=== PATIENT | male | born 1960 | race Caucasian/White ===

== ENCOUNTER 2016-05-22 02:24 | Emergency (ER) | payer BC ==
[2016-05-22] MEDS ORDERED: ACETAMINOPHEN 325 MG TABLET PO ONE (02:44)
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
[2016-05-22] MEDS ORDERED: IBUPROFEN 600 MG TABLET PO ONE (04:31)
[2016-05-22 04:37] VITALS: BP 136/92
== END 2016-05-22 04:37 | disposition home or self-care (01) ==
LOC: ER 02:24
DX: S22.41XA Multiple fractures of ribs, right side, initial encounter for closed fracture (principal); S80.212A Abrasion, left knee, initial encounter; S80.211A Abrasion, right knee, initial encounter; M25.511 Pain in right shoulder; V19.9XXA Pedal cyclist (driver) (passenger) injured in unspecified traffic accident, initial encounter; R59.0 Localized enlarged lymph nodes
CPT/HCPCS: 71250; 99284

== ENCOUNTER → 2016-09-22 | Outpatient (CLI) | payer BC ==
--- NOTE | 2016-09-22 16:12 | RADIOLOGY REPORT (SQ) ---
EXAM DESCRIPTION: CT CHEST WITH COMPLETED DATE/TIME: 09/22/2016 3:31 pm REASON FOR STUDY: SOLITARY PULMONARY NODULE R91.1 SOLITARY PULMONARY NODULE COMPARISON: 05/22/2016 TECHNIQUE: CT scan of the chest performed using helical scanning technique with dynamic intravenous contrast injection. Images reviewed with lung, soft tissue and bone windows. Reconstructed coronal and sagittal MPR images reviewed. All images stored on PACS. All CT scanners at this facility use dose modulation, iterative reconstruction, and/or weight based d osing when appropriate to reduce radiation dose to as low as reasonably achievable (ALARA). [facility]: Dose Right [facility]: CareDose [facility]: Dose Right [facility]: Teradose 4D [facility]: [employer] CONTRAST TYPE AND DOSE: contrast/concentration: Isovue 370.00 mg/ml; Total Contrast Delivered: 80.0 ml; Total Saline Delivered: 55.0 ml RENAL FUNCTION: Creatinine 0.8 RADIATION DOSE: Up-to-date CT equipment and radiation dose reduction techniques were employed. CTDIv ol: 17.6 mGy. DLP: 677 mGy-cm. . LIMITATIONS: None. FINDINGS: LUNGS AND PLEURA: No opacities, nodules, masses. No pneumothorax. No effusions. HILAR AND MEDIASTINAL STRUCTURES: There is a stable precarinal lymph node just to the right of the mi dline. HEART AND VASCULAR STRUCTURES: No aneurysm or dissection. No central pulmonary emboli. No pericardi al effusion. HARDWARE: None in the chest. UPPER ABDOMEN: The liver is hypodense. THYROID AND OTHER SOFT TISSUES: No masses. No adenopathy. BONES: There are healing fractures of the right posterior 3rd and 8th ribs. OTHER: No other significant finding. IMPRESSION: Stable precarinal node with no acute abnormality in the chest. TECHNICAL DOCUMENTATION: JOB ID: [id number] Quality ID # [id number]: Final reports with documentation of one or more dose reduction techniques (e.g., Au tomated exposure control, adjustment of the mA and/or kV according to patient size, use of iterative reconstruction technique) 2010 [employer]- All Rights Reserved
== END ==
LOC: RAD 14:42
PROVIDERS: ATTEND Surgery
DX: R91.1 Solitary pulmonary nodule (principal)
CPT/HCPCS: 71260; 82565

== ENCOUNTER → 2017-04-05 | Outpatient (CLI) | payer BC ==
--- NOTE | 2017-04-05 14:08 | RADIOLOGY REPORT (SQ) ---
EXAM DESCRIPTION: CT CHEST WITH COMPLETED DATE/TIME: 04/05/2017 1:50 pm REASON FOR STUDY: OTHER NONSPECIFIC ABN FINDING OF LUNG FIELD (R91.8) R91.8 OTHER NONSPECIFIC ABNOR MAL FINDING OF LUNG FIELD COMPARISON: 11/22/2016. 05/22/2016. TECHNIQUE: CT scan of the chest performed using helical scanning technique with dynamic intravenous contrast injection. Images reviewed with lung, soft tissue and bone windows. Reconstructed coronal and sagittal MPR images reviewed. All images stored on PACS. All CT scanners at this facility use dose modulation, iterative reconstruction, and/or weight based d osing when appropriate to reduce radiation dose to as low as reasonably achievable (ALARA). [facility]: Dose Right [facility]: CareDose [facility]: Dose Right [facility]: Teradose 4D [facility]: [employer] CONTRAST TYPE AND DOSE: contrast/concentration: Isovue 370.00 mg/ml; Total Contrast Delivered: 80.0 ml; Total Saline Delivered: 55.0 ml RENAL FUNCTION: Creatinine 1.0 RADIATION DOSE: CT Rad equipment meets quality standard of care and radiation dose reduction techniq ues were employed. CTDIvol: 17.6 mGy. DLP: 745 mGy-cm. . LIMITATIONS: None. FINDINGS: LUNGS AND PLEURA: Multiple nodules clustered in the right upper lobe largest measuring up to just at 9 mm maximally. New since prior. Lungs otherwise clear. HILAR AND MEDIASTINAL STRUCTURES: Stable small nodes in the mediastinum. Subcentimeter appearance. Previously noted precarinal node looks low density and may actually represent pericardial fluid. Non progressive. HEART AND VASCULAR STRUCTURES: No aneurysm or dissection. No central pulmonary emboli. No pericardi al effusion. HARDWARE: None in the chest. UPPER ABDOMEN: No significant findings. Limited exam. THYROID AND OTHER SOFT TISSUES: No masses. No adenopathy. BONES: No significant finding. OTHER: No other significant finding. IMPRESSION: 1. Right upper lobe nodular infiltrate, presumably related to atypical infectious/ infl ammatory etiology. New since October of last year. TECHNICAL DOCUMENTATION: JOB ID: [id number] Quality ID # [id number]: Final reports with documentation of one or more dose reduction techniques (e.g., Au tomated exposure control, adjustment of the mA and/or kV according to patient size, use of iterative reconstruction technique) 2010 [employer]- All Rights Reserved
== END ==
LOC: RAD 13:15
PROVIDERS: ATTEND Surgery
DX: R91.8 Other nonspecific abnormal finding of lung field (principal)
CPT/HCPCS: 71260; 82565

== ENCOUNTER → 2017-07-11 | Outpatient (CLI) | payer BC ==
--- NOTE | 2017-07-11 15:33 | RADIOLOGY REPORT (SQ) ---
EXAM DESCRIPTION: CT CHEST WITH COMPLETED DATE/TIME: 07/11/2017 2:34 pm REASON FOR STUDY: MEDIASTINAL LYMPHADENOPATHY R59.0 LOCALIZED ENLARGED LYMPH NODES COMPARISON: CT chest 05/22/2016, 09/22/2016, 04/05/2017 TECHNIQUE: CT scan of the chest performed using helical scanning technique with dynamic intravenous contrast injection. Images reviewed with lung, soft tissue and bone windows. Reconstructed coronal and sagittal MPR images reviewed. All images stored on PACS. All CT scanners at this facility use dose modulation, iterative reconstruction, and/or weight based d osing when appropriate to reduce radiation dose to as low as reasonably achievable (ALARA). [facility]: Dose Right [facility]: CareDose [facility]: Dose Right [facility]: Teradose 4D [facility]: [employer] CONTRAST TYPE AND DOSE: contrast/concentration: Isovue 370.00 mg/ml; Total Contrast Delivered: 80.0 ml; Total Saline Delivered: 55.0 ml RENAL FUNCTION: Creatinine 0.8 RADIATION DOSE: CT Rad equipment meets quality standard of care and radiation dose reduction techniq ues were employed. CTDIvol: 17.0 mGy. DLP: 705 mGy-cm. . LIMITATIONS: None. FINDINGS: LUNGS AND PLEURA: No opacities, nodules, masses. No pneumothorax. No effusions. HILAR AND MEDIASTINAL STRUCTURES: No identified masses or abnormal nodes. A benign fluid-filled supe rior pericardial recess is present, projecting into the precarinal region. This is similar compared to the previous CT chest exams and does not represent an enlarged lymph node. HEART AND VASCULAR STRUCTURES: No aneurysm or dissection. No central pulmonary emboli. No pericardi al effusion. Minimal coronary artery calcifications. HARDWARE: None in the chest. UPPER ABDOMEN: No significant findings. Limited exam. THYROID AND OTHER SOFT TISSUES: No masses. No adenopathy. BONES: No significant finding. OTHER: No other significant finding. IMPRESSION: NORMAL CT OF THE CHEST WITH IV CONTRAST. TECHNICAL DOCUMENTATION: JOB ID: [id number] Quality ID # 436: Final reports with documentation of one or more dose reduction techniques (e.g., Au tomated exposure control, adjustment of the mA and/or kV according to patient size, use of iterative reconstruction technique) 2010 [employer]- All Rights Reserved Reading location - IP/workstation name: [email or web address]
== END ==
LOC: RAD 13:58
PROVIDERS: ATTEND Surgery
DX: R59.0 Localized enlarged lymph nodes (principal)
CPT/HCPCS: 71260; 82565

== ENCOUNTER 2019-01-02 23:55 | Emergency (ER) | payer BC ==
--- NOTE | 2019-01-03 00:48 | ER Document Report ---
ED Medical Screen (RME) - General Stated Complaint: HEAD INJURY Time Seen by Provider: 01/03/19 00:45 Primary Care Provider: TAISHA DRUMMOND MD [Primary Care Provider] - Follow up as needed Mode of Arrival: Ambulatory Information source: Patient Notes: 58-year-old male presented to ED for laceration above the right eye. He states he slipped while on a ladder hit his head on something on the ladder about 1145 cutting his forehead. 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 He states he is he is in no pain at this time I looked in the records and his last tetanus was in September 2014. Patient is alert oriented respirations regular and unlabored. I have greeted and performed a rapid initial assessment of this patient. A comprehensive ED assessment and evaluation of the patient, analysis of test results and completion of medical decision making process will be conducted by an additional ED providers. TRAVEL OUTSIDE OF THE [place] IN LAST 30 DAYS: No - Related Data Allergies/Adverse Reactions: No Known Allergies Allergy (Unverified 10/18/14 15:25) Past Medical History - Social History Cigarette use (# per day): No Frequency of alcohol use: Rare Drug Abuse: None Renal/ Medical History: Denies: Hx Peritoneal Dialysis - Immunizations Hx Diphtheria, Pertussis, Tetanus Vaccination: Yes - September 2014 Physical Exam - Vital signs Vitals: Temp Pulse Resp BP Pulse Ox 97.6 F 80 12 139/81 H 95 01/03/19 00:31 01/03/19 00:31 01/03/19 00:31 01/03/19 00:31 01/03/19 00:31 Course - Vital Signs Vital signs: Temp Pulse Resp BP Pulse Ox 97.6 F 80 12 139/81 H 95 01/03/19 00:31 01/03/19 00:31 01/03/19 00:31 01/03/19 00:01/03/19 00:31 Doctor's Discharge - Discharge Referrals: TAISHA DRUMMOND MD [Primary Care Provider] - Follow up as needed
[2019-01-03] MEDS ORDERED: CEPHALEXIN 500 MG CAPSULE PO ONE (04:28)
[2019-01-03] MEDS ORDERED: LIDOCAINE 1% INJ-PF (10 MG/ML) 30 ML SDV INJ ONE (04:28)
--- NOTE | 2019-01-03 04:30 | ER Document Report ---
ED Wound - General Chief Complaint: Head Injury Stated Complaint: HEAD INJURY Time Seen by Provider: 01/03/19 00:45 Mode of Arrival: Ambulatory Notes: Patient is a 58-year-old male that comes to the emergency department for chief complaint of head injury with laceration to the forehead just above the right side of the face. He states that he was on a ladder and he thinks he struck his face on the paint tool handle that was sticking off of a tray. He denies loss of consciousness, nausea, vomiting, alcohol, or any other injuries. Tetanus up-to-date within 5 years. Secondarily patient has an area where he had a wound which was scratched and now has some crusting and redness around it mainly on the right leg. Patient is not a diabetic. TRAVEL OUTSIDE OF THE [place] IN LAST 30 DAYS: No - Related Data Allergies/Adverse Reactions: No Known Allergies Allergy (Unverified 10/18/14 15:25) Past Medical History - General Information source: Patient - Social History Smoking Status: Never Smoker Cigarette use (# per day): No Chew tobacco use (# tins/day): No Frequency of alcohol use: Rare Drug Abuse: None Lives with: Family Family History: Reviewed & Not Pertinent Patient has suicidal ideation: No Patient has homicidal ideation: No Renal/ Medical History: Denies: Hx Peritoneal Dialysis - Immunizations Immunizations up to date: Yes Hx Diphtheria, Pertussis, Tetanus Vaccination: Yes - September 2014 Review of Systems - Review of Systems Constitutional: No symptoms reported EENT: No symptoms reported Cardiovascular: No symptoms reported Respiratory: No symptoms reported Gastrointestinal: No symptoms reported Genitourinary: No symptoms reported Male Genitourinary: No symptoms reported Musculoskeletal: See HPI Skin: See HPI Hematologic/Lymphatic: No symptoms reported Neurological/Psychological: No symptoms reported Physical Exam - Vital signs Vitals: Temp Pulse Resp BP Pulse Ox 97.6 F 80 12 139/81 H 95 01/03/19 00:31 01/03/19 00:31 01/03/19 00:31 01/03/19 00:31 01/03/19 00:31 - Notes Notes: GENERAL: Alert, interacts well. No acute distress. HEAD: Normocephalic. There is a diagonal laceration above the right eyebrow extending near to the top of the nose which is approximately 3 cm in length, partial-thickness with a flap in the middle of it. Minimal bruising around this area. Unremarkable exam otherwise. EYES: Pupils equal, round, and reactive to light. Extraocular movements intact. ENT: Oral mucosa moist, tongue midline. Oropharynx unremarkable. Airway patent. Nares patent, no nasal septal hematoma, TM's intact. NECK: Full range of motion. Supple. Trachea midline. LUNGS: Clear to auscultation bilaterally, no wheezes, rales, or rhonchi. No respiratory distress. HEART: Regular rate and rhythm. No murmur ABDOMEN: Soft, non-tender. Non-distended. EXTREMITIES: Moves all 4 extremities spontaneously. No edema, normal radial and dorsalis pedis pulses bilaterally. BACK: no cervical, thoracic, lumbar midline tenderness. No saddle anesthesia, normal distal neurovascular exam. NEUROLOGICAL: Alert and oriented x3. Normal speech. Cranial nerves II through XII grossly intact. PSYCH: Normal affect, normal mood. SKIN: Warm, dry, normal turgor. No rashes or lesions noted. Course - Re-evaluation Re-evalutation: Patient with no concerning injury symptoms reported, no neurological deficits, no alcohol noted or reported. Wound was cleaned thoroughly and repaired. Discussed expectations, follow-up, return precautions with patient and family at bedside. They state understanding and agreement. - Vital Signs Vital signs: Temp Pulse Resp BP Pulse Ox 97.8 F 81 18 135/80 H 100 01/03/19 05:16 01/03/19 05:16 01/03/19 05:16 01/03/19 05:16 01/03/19 05:16 Procedures - Laceration/Wound Repair Right forehead Wound length (cm): 3 Wound's Depth, Shape: Irregular, Flap Laceration pre-procedure: Sterile PPE donned, Sterile drapes applied, Shur-Clens applied Anesthetic type: 1% Lidocaine Volume Anesthetic (mLs): 3 Wound explored: Clean, No foreign body removed Wound Repaired With: Sutures Suture Size/Type: 6:0, Nylon Number of Sutures: 7 Layer Closure?: No Post-procedure NV exam normal: Yes Complications: No Discharge - Discharge Clinical Impression: Facial laceration Qualifiers: Encounter type: initial encounter Qualified Code(s): S01.81XA - Laceration without foreign body of other part of head, initial encounter Condition: Stable Disposition: HOME, SELF-CARE Additional Instructions: The sutures need to be removed in about 7 days at a medical facility. Keep clean, clean with soap and water, dab dry, avoid scrubbing or soaking the area. You can keep thin film of topical antibiotic over the area. You do also appear to have a skin infection, probably impetigo by the appearance, take the cephalexin as prescribed to completion. Return for any concerning symptoms including spreading redness, discolored drainage, fever, or any other concerning or worsening symptoms. Prescriptions: Cephalexin Monohydrate [Keflex 500 mg Capsule] 500 mg PO QID #28 capsule
[2019-01-03 05:17] VITALS: BP 135/80
== END 2019-01-03 05:17 | disposition home or self-care (01) ==
LOC: ER 23:55
PROC: 0HQ1XZZ Repair Face Skin, External Approach (ICD-10-PCS; principal; 2019-01-02)
DX: S01.81XA Laceration without foreign body of other part of head, initial encounter (principal); W22.8XXA Striking against or struck by other objects, initial encounter
CPT/HCPCS: 12013; J3490; 99282